=== PATIENT | female | born 1995 | race Caucasian/White ===

== ENCOUNTER 2018-07-13 11:57 | Emergency (ER) | payer BC ==
[~2018-07-13] VITALS: Ht 162.6 cm; Wt 61.2 kg
[2018-07-13] MEDS ORDERED: LAMICTAL25 MG (12:31)
[2018-07-13] MEDS ORDERED: ATIVAN1 M1 (12:31)
[2018-07-13] MEDS ORDERED: DEXTROAMP-AMPHE10 MG (12:33)
[2018-07-13] MEDS ORDERED: ABILIFY5 MG (12:34)
== END 2018-07-14 02:03 | disposition home or self-care (01) ==
LOC: ER 11:57
DX: R41.0 Disorientation, unspecified (principal); R42 Dizziness and giddiness; F10.129 Alcohol abuse with intoxication, unspecified; G25.89 Other specified extrapyramidal and movement disorders; T42.4X5A Adverse effect of benzodiazepines, initial encounter; Y92.89 Other specified places as the place of occurrence of the external cause